=== PATIENT | female | born 1955 | race Caucasian/White ===

== ENCOUNTER 2024-05-18 06:40 | Emergency (ER) | payer BC, MEDICAID ==
[~2024-05-18] VITALS: Ht 157.5 cm; Wt 113.4 kg
[2024-05-18 06:46] VITALS: BP 164/79; PULSE 76; RESP 18; TEMP 98
[2024-05-18] MEDS: LORazepam 0.5 MG TAB PO ONE (07:21)
[2024-05-18] MEDS ORDERED: LOPE1TAB14 PO (07:23)
[2024-05-18] MEDS ORDERED: ROPI0.2523 PO (07:23)
[2024-05-18] MEDS ORDERED: ATI.5 PO (07:23)
== END 2024-05-18 08:04 | disposition home or self-care (01) ==
LOC: MED 06:40
DX: F41.9 Anxiety disorder, unspecified (principal); G25.81 Restless legs syndrome; R19.7 Diarrhea, unspecified; I10 Essential (primary) hypertension; J44.9 Chronic obstructive pulmonary disease, unspecified; F31.9 Bipolar disorder, unspecified
CPT/HCPCS: 99283